=== PATIENT | female | born 1995 | race Caucasian/White ===

== ENCOUNTER 2019-10-03 09:09 | Inpatient (IN) | payer OTHER ==
[~2019-10-03] VITALS: Ht 160 cm; Wt 72.6 kg
[2019-10-03 10:08] LABS: CALCIUM 9.1 mg/dL (8.5-10.1); CARBON DIOXIDE 28.3 mmol/L (21-32); CHLORIDE SERUM 103 mmol/L (98-107); CREATININE SERUM 0.7 mg/dL (0.6-1.0); GFR1 > 60 mL/min; GLUCOSE SERUM 100 mg/dL (74-106); POTASSIUM SERUM 4.1 mmol/L (3.5-5.1); SODIUM SERUM 140 mmol/L (136-145)
[2019-10-03 10:13] LABS: ALBUMIN 4.1 g/dL (3.4-5.0); ALKALINE PHOSPHATASE 74 U/L (46-116); ALT/SGPT 37 U/L (14-59); AST/SGOT 27 U/L (15-37); LIPASE 159 IU/L (73-393); TOTAL PROTEIN, SERUM 8.3 g/dL (6.4-8.2)
[2019-10-03 10:49] LABS: BASOPHIL % 0.5 % (0-2); PLATELET COUNT 96 x10^3mcL (130-400); RED CELL DISTRIBUTION WIDTH 14.5 % (11.5-14.5)
[2019-10-03 15:43] LABS: FREE T4 1.25 ng/dL (0.76-1.46); T3 TOTAL 1.4 ng/mL; T4(THYROXINE) 9.1 ug/dL (4.7-13.3)
[2019-10-03 18:38] VITALS: BP 142/83
[2019-10-03 18:45] VITALS: Ht 160 cm; Wt 72.6 kg
[2019-10-03 20:12] VITALS: BP 115/65
[2019-10-03 21:31] LABS: microscopic required? NO
[2019-10-03 21:35] LABS: urine erythrocyte NEGATIVE (NEGATIVE)
[2019-10-03 21:50] LABS: AMPHETAMINE QUAL UR NONE DETECTED (See below)
[2019-10-04 05:18] VITALS: BP 122/72
[2019-10-04 06:08] LABS: BASOPHIL % 0.1 % (0-2); RED CELL DISTRIBUTION WIDTH 12.2 % (11.5-14.5)
[2019-10-04 06:47] LABS: PLATELET COUNT 181 x10^3mcL (130-400)
[2019-10-04 06:55] LABS: CALCIUM 8.3 mg/dL (8.5-10.1); CARBON DIOXIDE 24.8 mmol/L (21-32); CHLORIDE SERUM 104 mmol/L (98-107); CREATININE SERUM 0.6 mg/dL (0.6-1.0); GFR1 > 60 mL/min; GLUCOSE SERUM 111 mg/dL (74-106); MAGNESIUM 1.9 mg/dL (1.8-2.4); PHOSPHOROUS 4.8 mg/dL (2.5-4.9); POTASSIUM SERUM 4.3 mmol/L (3.5-5.1); SODIUM SERUM 138 mmol/L (136-145)
[2019-10-04 08:00] VITALS: BP 101/47
[2019-10-04] MEDS ORDERED: IBU600 M2 PO (10:23)
[2019-10-04 10:46] VITALS: BP 107/66
[2019-10-04 12:39] VITALS: BP 98/55
== END 2019-10-04 17:30 | disposition home or self-care (01) | DRG 343 ==
LOC: ED 09:09 → MU 15:01
PROVIDERS: Emergency Medicine; Surgery; ADMIT Internal Medicine
PROC: 0DTJ4ZZ Resection of Appendix, Percutaneous Endoscopic Approach (ICD-10-PCS; principal; 2019-10-03 16:00)
DX: K35.80 Unspecified acute appendicitis (principal); Z68.21 Body mass index [BMI] 21.0-21.9, adult
CPT/HCPCS: 84439; G0378; J0330; J0694; J2175; J2250; J2270; J2405; J2543; J2704; J2710; J3010; J3490; J7030; J7120; Q0092

== ENCOUNTER 2019-10-26 11:07 | Emergency (ER) | payer OTHER ==
[~2019-10-26] VITALS: Ht 160 cm; Wt 54.9 kg
[~2019-10-26 11:07] MED LIST: IBU600 M2 PO
[2019-10-26 11:27] VITALS: Ht 160 cm; Wt 54.9 kg
[2019-10-26 13:16] LABS: BASOPHIL % 1.2 % (0-2); RED CELL DISTRIBUTION WIDTH 12.8 % (11.5-14.5)
[2019-10-26 13:25] LABS: UA SPECIFIC GRAVITY >=1.030 (1.005-1.035); microscopic required? NO; urine erythrocyte NEGATIVE (NEGATIVE)
[2019-10-26 13:30] LABS: PLATELET COUNT 216 x10^3mcL (130-400)
[2019-10-26 14:33] LABS: AMPHETAMINE QUAL UR NONE DETECTED (See below)
[2019-10-26 14:37] LABS: ALBUMIN 4.1 g/dL (3.4-5.0); ALKALINE PHOSPHATASE 77 U/L (46-116); ALT/SGPT 36 U/L (14-59); AMYLASE 52 U/L (25-115); AST/SGOT 24 U/L (15-37); CALCIUM 9.6 mg/dL (8.5-10.1); CARBON DIOXIDE 27.2 mmol/L (21-32); CHLORIDE SERUM 103 mmol/L (98-107); CREATININE SERUM 0.7 mg/dL (0.6-1.0); GFR1 > 60 mL/min; GLUCOSE SERUM 91 mg/dL (74-106); LIPASE 170 IU/L (73-393); POTASSIUM SERUM 5.2 mmol/L (3.5-5.1); SODIUM SERUM 140 mmol/L (136-145)
[2019-10-26 14:38] LABS: TOTAL PROTEIN, SERUM 8.4 g/dL (6.4-8.2)
[2019-10-26 16:33] VITALS: BP 97/52
== END 2019-10-26 16:33 | disposition home or self-care (01) ==
LOC: ED 11:07
PROVIDERS: Emergency Medicine
DX: K59.00 Constipation, unspecified (principal); Z90.89 Acquired absence of other organs
CPT/HCPCS: J1885; J2060; J2270; J2405; J7030; Q9967